=== PATIENT | male | born 1990 | race Two or more races ===

== ENCOUNTER 2016-10-28 22:15 | Emergency (ER) | payer MEDICAID ==
[2016-10-28] MEDS ORDERED: OLANZapine 2.5 MG TAB ONE (23:08)
[2016-10-28] MEDS ORDERED: OLANZapine DISINTEGR 5 MG TAB PO ONE (23:09)
--- NOTE | 2016-10-28 23:10 | EDPHY ---
H & P Stated Complaint: TOOK 6 TABS OF NEURONTIN AND ETOH 21:00 - Personal History Current Tetanus/Diphtheria Vaccine: Yes Current Tetanus Diphtheria and Acellular Pertussis (TDAP): Yes - Medical/Surgical History Hx Asthma: No Hx Chronic Respiratory Disease: No Hx Diabetes: No Hx Cardiac Disease: No Hx Renal Disease: No Hx Cirrhosis: No Hx Alcoholism: No Hx HIV/AIDS: No Hx Splenectomy or Spleen Trauma: No Other PMH: ANXIETY - Social History Smoking Status: Never smoked Time Seen by Provider: 10/28/16 22:55 HPI/ROS: Chief Complaint: Depressed, took too many meds HPI: 26-year-old male with a history of depression brought in by a friend after he drink alcohol and ingested too many medications. Patient was hospitalized over spring with severe depression, started on Remeron and Neurontin. Tonight he was at a bar when he had an incident with other members there and had a "emotional devastation". He is declining to provide further details. He denies any injury. He did take 6 of his Neurontin and drank alcohol to help himself calm down. He then called a friend who brought him here for further evaluation. He is complaining of depression but denies being suicidal. He is unwilling to give any further information at this time and he is moderately agitated. ROS: 10 point Review of Systems is negative except as noted in the HPI. PMH: Depression Medications: Neurontin and Remeron Allergies: No known drug allergies Social History: No smoking, positive for alcohol, no recreational drug use Family History: non-contributory Physical Exam: Gen: Awake, Alert, slurred speech, smells of alcohol HEENT: Nose: no rhinorrhea Eyes: PERRLA, EOMI Mouth: Moist mucosa Neck: Supple, no JVD Chest: nontender, lungs clear to auscultation Heart: S1, S2 normal, no murmur Abd: Soft, non-tender, no guarding Back: no CVA tenderness, no midline tenderness Ext: no edema, non-tender Skin: no rash Neuro: CN II-XII intact, Sensation grossly intact, Strength 5/5 in bilateral upper and lower extremities (Petre Salvador) Constitutional: Initial Vital Signs Temperature (C) 37.2 C 10/28/16 22:18 Heart Rate 105 H 10/28/16 22:18 Respiratory Rate 20 10/28/16 22:18 Blood Pressure 132/101 H 10/28/16 22:18 O2 Sat (%) 92 10/28/16 22:18 O2 Delivery Mode Room Air Allergies/Adverse Reactions: No Known Allergies Allergy (Unverified 10/28/16 22:20) Home Medications: Medication Instructions Recorded Gabapentin [Neurontin 300 MG (*)] 300 mg PO HS 10/28/16 Mirtazapine [Remeron] 30 mg PO 10/28/16 Medical Decision Making ED Course/Re-evaluation: 0400 patient still complaining of being suicidal. He is not alex for safety at this time. He is otherwise medically cleared. He is on a detainer. He is going to need mental health evaluation given his inability to contract for safety in his recent admission for any patient referred depression. [address] Tipton pending mental health evaluation. (Peter Salvador) 7:00 a.m.- The patient remained stable throughout my shift. The case will be signed out to the oncoming provider Dr. Tipton. (Evy Hobbs) Other Provider: Care assumed at 3:00 p.m. with plan for psychiatric evaluation for severe depression. Patient placed on a mental health hold for suicidal ideation in consultation with psychiatric systems consultant at 4:00 p.m.. Given 1 mg oral Ativan, then oral Zyprexa at 1800 for agitation and anxiety. 2300 Signed out to Faby with psychiatric inpatient placement pending. (Yousif Rocha) - Data Points Laboratory Results: Laboratory Results 10/28/16 22:37 10/28/16 22:37 Medications Given: Discontinued Medications Lorazepam (Ativan) 1 mg PO EDNOW ONE Stop: 10/29/16 01:25 Last Admin: 10/29/16 01:29 Dose: 1 mg Lorazepam (Ativan) 1 mg PO EDNOW ONE Stop: 10/29/16 16:04 Last Admin: 10/29/16 16:08 Dose: 1 mg Olanzapine (Zyprexa Zydis) 5 mg PO EDNOW ONE Stop: 10/28/16 23:10 Last Admin: 10/28/16 23:10 Dose: 5 mg Olanzapine (Zyprexa Zydis) 10 mg PO EDNOW ONE Stop: 10/29/16 17:11 Last Admin: 10/29/16 17:10 Dose: 10 mg Departure - Departure Clinical Impression: Alcoholic intoxication Qualifiers: Complication of substance-induced condition: uncomplicated Qualified Code(s): F10.120 - Alcohol abuse with intoxication, uncomplicated Depression Qualifiers: Depression Type: major depressive disorder Major depression recurrence: single episode Active/Remission status: currently active Major depression episode severity: moderate Qualified Code(s): F32.1 - Major depressive disorder, single episode, moderate Condition: Good Instructions: Depression (ED), Alcohol Intoxication (ED) Referrals: BETTY Longoria,. [Clinic] - As per Instructions
[2016-10-28 23:14] LABS: % IMMATURE GRANULYOCYTES 0.4 % (0.0-1.1); ABSOLUTE IMMATURE GRANULOCYTES 0.03 10^3/uL (0.00-0.10); ADD DIFF? NO; ADD MORPH? NO; ADD SCAN? NO; ATYPICAL LYMPHOCYTE FLAG 10 (0-99); FRAGMENT RBC FLAG 0 (0-99); HEMATOCRIT 55.5 % (40.0-51.0); HEMOGLOBIN 18.9 g/dL (13.7-17.5); LEFT SHIFT FLG 0 (0-99); LIPEMIA HEMOLYSIS FLAG 90 (0-99); MEAN CELL HEMOGLOBIN 29.3 pg (27.9-34.1); MEAN CELL HEMOGLOBIN CONCENTR. 34.1 g/dL (32.4-36.7); MEAN CELL VOLUME 85.9 fL (81.5-99.8); MEAN PLATELET VOLUME 11.5 fL (8.7-11.7); PLATELET CLUMPS FLAG 10 (0-99); PLATELET COUNT 262 10^3/uL (150-400); RED BLOOD CELL COUNT 6.46 10^6/uL (4.40-6.38); RED CELL DISTRIBUTION WIDTH 13.9 % (11.5-15.2)
[2016-10-28 23:20] LABS: ANION GAP 13 mEq/L (8-16); CALCIUM 9.8 mg/dL (8.5-10.4); CARBON DIOXIDE 23 mEq/l (22-31); CHLORIDE 105 mEq/L (97-110); CREATININE 0.8 mg/dL (0.7-1.3); ETHANOL SERUM 124 mg/dL (0-10); GLOMERULAR FILTRATION RATE > 60; GLUCOSE 95 mg/dL (70-100); SODIUM 141 mEq/L (134-144)
[2016-10-29] MEDS ORDERED: LORazepam 1 MG TAB PO ONE ×2 (01:24→16:03)
[2016-10-29] MEDS ORDERED: LORazepam 1 MG TAB ONE (17:05)
[2016-10-29] MEDS ORDERED: OLANZapine DISINTEGR 10 MG TAB ONE (17:07)
[2016-10-29] MEDS ORDERED: OLANZapine DISINTEGR 10 MG TAB PO ONE (17:10)
[2016-10-30 07:51] VITALS: O2SAT 96
[2016-10-30 13:35] VITALS: RESP 16
[2016-10-30] MEDS ORDERED: OLANZapine DISINTEGR 10 MG TAB PO ONE (16:05)
[2016-10-30 18:30] VITALS: TEMP 98.6
[2016-10-30 20:44] VITALS: BP 135/79; PULSE 84
== END 2016-10-30 20:41 ==
DX: F32.1 Major depressive disorder, single episode, moderate (principal); F10.120 Alcohol abuse with intoxication, uncomplicated
CPT/HCPCS: 80305; G0480